=== PATIENT | male | born 1940 | race Caucasian/White ===

== ENCOUNTER 2016-06-10 09:30 | Outpatient (CLI) | payer MEDICARE | END 2016-06-10 09:31 | disposition home or self-care (01) | DX: I48.92 Unspecified atrial flutter (principal) ==

== ENCOUNTER 2016-08-25 04:11 | Observation (INO) | payer MEDICARE ==
[2016-08-25] MEDS ORDERED: SODIUM CHLORIDE 0.9% 1,000 ML IV ONE (04:22)
[2016-08-25] MEDS ORDERED: PANTOPRAZOLE 40 MG VIAL IVP STA (04:36)
[2016-08-25 04:39] LABS: BASOPHILS % (AUTO) 0.2 %; EOSINOPHILS # (AUTO) 0.1 10^3/uL (0.0-0.7); EOSINOPHILS % (AUTO) 1.1 %; HGB - HEMOGLOBIN 14.7 g/dL (14.0-18.0); LYMPHOCYTES # (AUTO) 1.8 10^3/uL (1.5-3.5); LYMPHOCYTES % (AUTO) 16.3 %; MEAN CORPUSCULAR HEMOGLOBIN 31.8 pg (27.0-31.0); MEAN CORPUSCULAR HGB CONC 34.2 g/dL (32.0-36.0); MEAN CORPUSCULAR VOLUME 92.9 fL (80.0-94.0); MEAN PLATELET VOLUME 7.8 fL (7.4-11.4); MONOCYTES # (AUTO) 0.8 10^3/uL (0.0-1.0); MONOCYTES % (AUTO) 7.6 %; NEUTROPHILS # (AUTO) 8.1 10^3/uL (1.5-6.6); NEUTROPHILS % (AUTO) 74.8 %; RED BLOOD COUNT 4.62 10^6/uL (4.70-6.10); RED CELL DISTRIBUTION WIDTH 12.4 % (12.0-15.0); UNCORRECTED WHITE BLOOD COUNT 10.8 x10^3/uL; WHITE BLOOD COUNT 10.8 x10^3/uL (4.8-10.8)
[2016-08-25] MEDS ORDERED: PANTOPRAZOLE 40 MG VIAL ONE (04:42)
[2016-08-25 04:44] LABS: INR 1.1 (0.8-1.2); PT - PROTHROMBIN TIME 12.1 secs (9.9-12.6)
[2016-08-25 04:51] LABS: ALBUMIN/GLOBULIN RATIO 1.6 (1.0-2.2); BILIRUBIN,TOTAL 0.6 mg/dL (0.2-1.0); CALCIUM 8.7 mg/dL (8.5-10.3); PARTIAL THROMBOPLASTIN TIME 27.5 secs (24.9-33.3); POTASSIUM 3.6 mmol/L (3.5-5.0); TOTAL PROTEIN 6.3 g/dL (6.7-8.2)
[2016-08-25] MEDS ORDERED: IOPAMIDOL-300 100 ML VIAL IVP ONE (05:56)
--- NOTE | 2016-08-25 06:24 | CT Preliminary Report ---
Exam: CT Abdomen/Pelvis W/ IMPRESSION: 1. Colitis involving the transverse colon and to a lesser extent the proximal portion of the descendi ng colon. This is probably infectious or inflammatory bowel disease related. 2. No bowel obstruction. 3. Suspect gallstones. [facility] SITE ID: [id number]
--- NOTE | 2016-08-25 06:27 | CT Report ---
EXAM: CT ABDOMEN AND PELVIS EXAM DATE: 08/25/2016 05:42 AM. CLINICAL HISTORY: Abdominal pain and rectal bleeding. Since yesterday morning. COMPARISONS: None. TECHNIQUE: Routine helical CT imaging was performed through the abdomen and pelvis. IV contrast: 100 mL of Isovue-300. Enteric contrast: No. Reconstructions: Coronal and sagittal. In accordance with CT protocol optimization, one or more of the following dose reduction techniques w ere utilized for this exam: automated exposure control, adjustment of mA and/or KV based on patient s ize, or use of iterative reconstructive technique. FINDINGS: ABDOMEN: Liver: No significant abnormality. Stomach/Distal Esophagus: No significant abnormality. Gallbladder: Multiple gallstones. Bile Ducts: No significant abnormality. Pancreas: No significant abnormality. Spleen: No significant abnormality. Kidneys: No solid appearing lesion. No hydronephrosis. Small low-density arising from the posterior a spect of the left mid to upper kidney, too small to accurately characterize. Adrenals: No significant abnormality. Bowel: Moderate wall thickening of the transverse colon is present and to lesser extent within the pr oximal descending colon. Slight apparent sparing of the splenic flexure of the colon. Of the portions of the colon without inflammatory change. No significant diverticulosis. Appendix: Appendix could not be identified with certainty. No secondary evidence of appendicitis. Lymph Nodes: No pathologically enlarged nodes. Vasculature: Normal caliber aorta. Fluid: No significant free fluid. Abdominal Wall: No significant abnormality. Other: No significant abnormality. PELVIS: Prostate Bladder: No significant abnormality. Lymph Nodes: No pathologically enlarged nodes. Fluid: No significant free fluid. Other: None. BONES: No suspicious bony lesions. This is chronic FOCUS within the left iliac bone, most consistent with a bone island. LOWER CHEST: No significant consolidation or effusion. IMPRESSION: 1. Colitis involving the transverse colon and to a lesser extent the proximal portion of the descendi ng colon. This is probably infectious or inflammatory bowel disease related. 2. No bowel obstruction. 3. Suspect gallstones. [facility] Referring Provider Line: [phone] SITE ID: [id number]
--- NOTE | 2016-08-25 06:47 | ED Physician Documentation ---
PD HPI GI BLEED - Stated complaint Stated Complaint: RECTAL BLEED - Chief complaint Chief Complaint: Abd Pain - History obtained from History obtained from: Patient, Family - History of Present Illness Timing - onset: Yesterday Timing - details: Abrupt onset Associated symptoms: BRBPR, Diarrhea Contributing factors: No: Sick contact, Recent antibiotics, NSAID use Similar symptoms before: Has not had sx before Recently seen: Not recently seen - Additional information Additional information: Patient is a 76 year old male with a history of a fib, on a baby aspirin who is presenting to the emergency department for abdominal pain and GI bleeding. patient states that he had moderately severe abdominal pain yesterday. patient had one episode of diarrhea yesterday and it was bright red. patient had another episode this morning and states that he was feeling a bit weaker so he came to the emergency department for evaluation. Review of Systems Constitutional: denies: Fever, Chills Eyes: denies: Loss of vision, Photophobia Ears: denies: Ear pain, Drainage/discharge Nose: denies: Rhinorrhea / runny nose, Congestion Throat: denies: Dental pain / toothache, Oral lesions / sores, Sore throat Cardiac: denies: Chest pain / pressure GI: reports: Abdominal Pain, Nausea, Diarrhea. denies: Vomiting : denies: Dysuria, Frequency, Hematuria Skin: denies: Rash, Lesions, Abrasion (s) Musculoskeletal: denies: Neck pain, Back pain Neurologic: reports: Generalized weakness. denies: Focal weakness, Numbness, Difficulty speaking, Altered mental status, LOC Immunocompromised: denies: Immunocompromised PD PAST MEDICAL HISTORY - Past Medical History Cardiovascular: Atrial fibrillation - Past Surgical History Past Surgical History: Yes General: Hiatal hernia repair - Present Medications Home Medications: Ambulatory Orders Medication Instructions Recorded Confirmed Something For Afib 08/25/16 - Allergies Allergies/Adverse Reactions: Allergies Allergy/AdvReac Type Severity Reaction Status Date / Time No Known Drug Allergies Allergy Verified 08/25/16 04:41 - Social History Does the pt smoke?: No Smoking Status: Never smoker Does the pt drink ETOH?: No Does the pt have substance abuse?: No - Immunizations Immunizations are current?: Yes PD ED PE NORMAL - Vitals Vital signs reviewed: Yes - General General: Alert and oriented X 3, Well developed/nourished - HEENT HEENT: Atraumatic, PERRL, Moist mucous membranes - Neck Neck: Supple, no meningeal sign - Cardiac Cardiac: No murmur - Respiratory Respiratory: No respiratory distress, Clear bilaterally - Derm Derm: Normal color, No rash - Extremities Extremities: No deformity, No tenderness to palpate, No edema - Neuro Neuro: Alert and oriented X 3, No motor deficit, No sensory deficit, Normal speech - Psych Psych: Normal mood, Normal affect PD ED PE EXPANDED - Abdomen Abdomen: Tender to palpation, Generalized/diffuse. No: Rebound, Guarding - Rectal Rectal: Heme Occult Pos - QC +, Other (bright red blood in rectum) Results - Vitals Vitals: Vital Signs - 24 hr 08/25/16 08/25/16 08/25/16 04:15 04:48 05:29 Temperature 36.5 C Heart Rate 94 78 74 Respiratory 16 15 18 Rate Blood Pressure 136/72 H 130/60 139/76 H O2 Saturation 96 97 97 08/25/16 06:47 Temperature Heart Rate 76 Respiratory 16 Rate Blood Pressure 134/71 H O2 Saturation 96 Oxygen O2 Source Room air - Labs Labs: Microbiology 08/25/16 06:00 Occult Blood - Final Stool Laboratory Tests 08/25/16 08/25/16 08/25/16 04:25 04:25 04:25 WBC 10.8 RBC 4.62 L Hgb 14.7 Hct 43.0 MCV 92.9 MCH 31.8 H MCHC 34.2 RDW 12.4 Plt Count 188 MPV 7.8 Neut # 8.1 H Lymph # 1.8 [place] # 0.8 Eos # 0.1 Baso # 0.0 Absolute Nucleated RBC 0.00 Nucleated RBCs 0.0 PT 12.1 INR 1.1 APTT 27.5 Sodium 136 Potassium 3.6 Chloride 103 Carbon Dioxide 24 Anion Gap 9.0 BUN 14 Creatinine 1.0 Estimated GFR (MDRD) 72 L Glucose 207 H Lactic Acid Calcium 8.7 Total Bilirubin 0.6 AST 17 ALT 17 Alkaline Phosphatase 61 Total Protein 6.3 L Albumin 3.9 Globulin 2.4 Albumin/Globulin Ratio 1.6 Lipase 21 L 08/25/16 04:25 WBC RBC Hgb Hct MCV MCH MCHC RDW Plt Count MPV Neut # Lymph # [place] # Eos # Baso # Absolute Nucleated RBC Nucleated RBCs PT INR APTT Sodium Potassium Chloride Carbon Dioxide Anion Gap BUN Creatinine Estimated GFR (MDRD) Glucose Lactic Acid 1.8 Calcium Total Bilirubin AST ALT Alkaline Phosphatase Total Protein Albumin Globulin Albumin/Globulin Ratio Lipase - Rads (name of study) ct abdomen and pelvis Radiology: Final report received, See rad report (consistent with colitis) PD MEDICAL DECISION MAKING - ED course Complexity details: reviewed old records, reviewed results, re-evaluated patient , considered differential, d/w patient, d/w family, d/w acquisition consultant ED course: Patient was seen and examined at bedside. IV access was gained and labs were drawn. Patient was treated with protonix and a fluid bolus. Patient's vital signs were within normal limits. When patient's labs came back patient was sent for imaging. When patient returned the results were reviewed. supervisor melt house surgeon, Dr. Santiago was contacted and he stated that he would come evaluate the patient once he left the OR. Hospitalist was contacted and the case was discussed with him. patient was placed in observation for further evaluation and care. Departure - Departure Disposition: ED Place in Observation Clinical Impression: GI bleed Condition: Stable
[2016-08-25] MEDS ORDERED: SODIUM CHLORIDE FLUSH 0.9% 10 ML SYRINGE IVP PRN (06:56)
[2016-08-25] MEDS ORDERED: ONDANSETRON 4 MG/2 ML VIAL IVP PRN (06:56)
[2016-08-25] MEDS: PANTOPRAZOLE 40 MG VIAL IVP SCH ×2 (08:55→14:51)
[2016-08-25] MEDS: SODIUM CHLORIDE 0.9% 1,000 ML IV SCH ×3 (08:55→23:44)
[2016-08-25] MEDS: CIPROFLOXACIN 400 MG/200 ML 200 ML IV SCH ×2 (08:55→19:59)
[2016-08-25] MEDS: POLYETHYLENE GLYCOL 3350 17 GM PACKET PO SCH (08:59)
[2016-08-25] MEDS: metroNIDAZOLE 500 MG/100 ML 100 ML IV SCH ×3 (10:15→21:57)
[2016-08-25 11:21] LABS: HGB - HEMOGLOBIN 13.5 g/dL (14.0-18.0); MEAN CORPUSCULAR HEMOGLOBIN 31.8 pg (27.0-31.0); MEAN CORPUSCULAR HGB CONC 34.6 g/dL (32.0-36.0); MEAN CORPUSCULAR VOLUME 92.2 fL (80.0-94.0); MEAN PLATELET VOLUME 7.7 fL (7.4-11.4); RED BLOOD COUNT 4.23 10^6/uL (4.70-6.10); RED CELL DISTRIBUTION WIDTH 12.5 % (12.0-15.0); WHITE BLOOD COUNT 9.9 x10^3/uL (4.8-10.8)
[2016-08-25] MEDS: SODIUM CHLORIDE FLUSH 0.9% 10 ML SYRINGE IVP SCH ×2 (13:26→22:54)
--- NOTE | 2016-08-25 15:30 | HISTORY & PHYSICAL EXAMINATION ---
DATE OF ADMISSION: 08/25/2016 PRIMARY CARE PROVIDER: Cher Glover MD. CHIEF COMPLAINT: Rectal bleeding. IDENTIFYING INFORMATION: The patient is the primary source of history and appears cogent, consistent, thorough. His is present and gives some additional information. The patient's additional information obtained from the hand-off from the emergency department anastacia maldonado, Dr. Balderas, as well as personal review of past medical records. The patient's exam is also use d in the evaluation of this person and preparation of this document. HISTORY OF PRESENT ILLNESS: The patient is a 76-year-old male who came in to the hospital with abdomi nal pain that started yesterday morning. It was central, it was severe and it radiated down into his pelvis. The patient said the pain subsided some, and then he had a bowel movement with blood and he w as not sure there was blood, but it did look red. He had this happen again later in the morning, the pain had subsided by this point and really was not bad until the middle of the night he had more blee ding, but still did not have very severe pain and his bowels excreted a thin bloody liquid. The patie nt then came to the hospital for further evaluation. REVIEW OF SYSTEMS: He denies any fever, chills, sweats. He has had no sore throat, cough, congestion. He denies any neck problems, swelling of lymph nodes. The patient had no bleeding, no cough, no shor tness of breath. He has had no chest pain, no palpitations, no feeling like he was going to faint. He has had no nausea, vomiting, diarrhea. He has had no problems with diarrhea, other than as above in the HPI and also had no urinary problems. The rest of the complete review of systems is negative exce pt as noted above. PAST MEDICAL HISTORY: Remarkable for atrial fibrillation. He does use aspirin and he also takes medic ations to control his atrial fibrillation. PAST SURGERY: A hiatal hernia repair. ALLERGIES: NONE KNOWN. MEDICATIONS: 1. Propafenone alternating with Rythmol 225 mg twice a day. 2. Diltiazem 180 once a day. PERSONAL AND SOCIAL HISTORY: The patient was born in [place], [place]. He was raised in that area. 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 The patient smoked until he was 26. He also drank until he was 26 and then jose t both. FAMILY HISTORY: Negative for diabetes. Positive for heart disease. Dad had an TN at age 62, but lived another 22 years subsequently. No cancers known of. PHYSICAL EXAMINATION: VITAL SIGNS: 36.5, 94, 16, 136/72, 96% O2 saturation room air. EYES: EOM within normal limits, PERRL, nonicteric. ENT: TMs not seen. Mouth and throat: Moist mucous membranes. No other pathology noted of mouth or pha rynx. NECK: No lymphadenopathy, no thyromegaly. No JVD, no bruits. CHEST WALL: Nontender. Symmetric. HEART: Irregular rhythm with a 2/6 murmur left sternal border. LUNGS: Clear, good air movement bilaterally. ABDOMEN: Soft, nontender, normal bowel sounds. He says he feels a little bit of pressure. No hepatosp lenomegaly. RECTAL/GENITAL: Exam was not done. EXTREMITIES: No edema and 1+ pulses felt to the posterior tibial. NEURO: Cognition intact. Cranial nerves intact. Motor intact. Gait was not tested. SKIN: No suspicious lesions, no dermatitis on limited exam. LABORATORY: He has white count of 10.8, 14 and 43 hemoglobin and hematocrit. The patient's platelet c ount 188. Sodium 136, potassium 3.6, chloride 103, CO2 of 24, BUN 14. Creatinine 1.0, glucose 207, ca lcium 8.7, bilirubin 0.6. Normal liver enzymes, albumin is 3.9, lipase 21. The patient's INR is 1.1 a nd PTT 27.5. Impression of the CT abdomen and pelvis: 1. Colitis involving the transverse colon and to a lesser extent the proximal portion of the descendi ng colon. This is probably infectious or inflammatory bowel disease related. 2. No bowel obstruction. 3. Suspect gallstones. SUMMARY: This is a 76-year-old male with a history of atrial fibrillation on baby aspirin who develop ed abdominal pain and bloody diarrhea followed by further bloody liquid in the middle the night and c yue into the hospital. Found to have colitis. He is admitted to the hospital for serial CBCs and IV a ntibiotics. It should be noted the patient is [place] and will not accept any blood. DIAGNOSES: 1. Colitis. 2. Bloody diarrhea. 3. Atrial fibrillation. 4. Anemia secondary to acute blood loss. DISCUSSION AND MEDICAL DECISION MAKIN. Colitis. The patient will be treated with antibiotics, namely Cipro and Flagyl and will be on luz l with rest and then a clear liquid diet. 2. Bloody diarrhea. The patient will be monitored with serial hemoglobins. However, the patient is no t a candidate for any blood as he has alevism beliefs which do not allow blood. 3. Atrial fibrillation. The patient's aspirin will be suspended for a short period of time and then r einstituted when he stopped bleeding. 4. Anemia with acute blood loss. Will again be monitored, but no blood products will be given. HOSPITAL ISSUES: 1. CODE STATUS: HE DOES WANT HIS HEART ATTEMPTED TO BE RESTARTED SHOULD IT STOP. HE ALSO DOES WANT TO HAVE INTUBATION AND BE ON A BREATHING MACHINE UNLESS THE OUTCOME IS HOPELESS. 2. VTE prophylaxis is contraindicated at this time. 3. Diet, which will be n.p.o. and then clear liquids, it will be advanced as tolerated and his blood sugars are consistent with having diabetes. He will have an A1c done to confirm. 4. Activity will be up with assistance when able. 5. He will have a peripheral IV at this point, no other tubes or lines. 6. Hospital status: The patient will be on observation with consultation from Dr. Santiago. He is no t a candidate for a colonoscopy at this juncture and will keep him here until we determine that he is not pleading sufficiently to warrant further workup interventions or interventions at this time. 7. Length of stay which is likely to be 1 night. DISPOSITION: Expected to be home. JOB #: [id number] EXT JOB #:[id number]
[2016-08-25] MEDS ORDERED: diltiaZEM CD 180 MG CAPSULE PO SCH (21:00)
[2016-08-25] MEDS: PROPAFENONE 150 MG TABLET PO SCH (21:55)
[2016-08-26] MEDS: metroNIDAZOLE 500 MG/100 ML 100 ML IV SCH ×2 (02:44→09:16)
[2016-08-26] MEDS: PANTOPRAZOLE 40 MG VIAL IVP SCH (05:59)
[2016-08-26] MEDS: SODIUM CHLORIDE FLUSH 0.9% 10 ML SYRINGE IVP SCH (05:59)
[2016-08-26 06:25] LABS: ALBUMIN/GLOBULIN RATIO 1.3 (1.0-2.2); BILIRUBIN,TOTAL 0.5 mg/dL (0.2-1.0); CALCIUM 8.2 mg/dL (8.5-10.3); CREATININE 0.8 mg/dL (0.6-1.2); POTASSIUM 3.7 mmol/L (3.5-5.0); TOTAL PROTEIN 5.9 g/dL (6.7-8.2)
[2016-08-26 07:26] LABS: BASOPHILS % (AUTO) 0.5 %; EOSINOPHILS # (AUTO) 0.1 10^3/uL (0.0-0.7); EOSINOPHILS % (AUTO) 0.8 %; HCT - HEMATOCRIT 38.4 % (42.0-52.0); HGB - HEMOGLOBIN 13.2 g/dL (14.0-18.0); LYMPHOCYTES # (AUTO) 1.4 10^3/uL (1.5-3.5); LYMPHOCYTES % (AUTO) 14.8 %; MEAN CORPUSCULAR HEMOGLOBIN 32.1 pg (27.0-31.0); MEAN CORPUSCULAR HGB CONC 34.4 g/dL (32.0-36.0); MEAN CORPUSCULAR VOLUME 93.2 fL (80.0-94.0); MEAN PLATELET VOLUME 8.1 fL (7.4-11.4); MONOCYTES # (AUTO) 0.8 10^3/uL (0.0-1.0); MONOCYTES % (AUTO) 8.1 %; NEUTROPHILS % (AUTO) 75.8 %; NUCLEATED RED BLOOD CELLS AUTO 0.1 /100WBC; RED BLOOD COUNT 4.12 10^6/uL (4.70-6.10); RED CELL DISTRIBUTION WIDTH 12.9 % (12.0-15.0); UNCORRECTED WHITE BLOOD COUNT 9.3 x10^3/uL; WHITE BLOOD COUNT 9.3 x10^3/uL (4.8-10.8)
[2016-08-26 08:03] VITALS: BP 115/68
[2016-08-26] MEDS: CIPROFLOXACIN 400 MG/200 ML 200 ML IV SCH (08:08)
[2016-08-26] MEDS: PROPAFENONE 150 MG TABLET PO SCH (08:13)
[2016-08-26] MEDS: POLYETHYLENE GLYCOL 3350 17 GM PACKET PO SCH (08:13)
[2016-08-26] MEDS ORDERED: ASPIRIN PO SCH (09:00)
[2016-08-26] MEDS ORDERED: diltiaZEM CD 180 MG CAPSULE PO SCH (09:00)
--- NOTE | 2016-08-26 09:15 | Discharge Plan ---
Discharge Plan Disposition: 01 Home, Self Care Condition: Good Prescriptions: Ciprofloxacin HCl [Cipro] 500 mg PO BID #14 tablet Metronidazole [Flagyl] 500 mg PO QID #28 tablet Diet: Regular Activity Restrictions: Activity as Tolerated Shower Restrictions: No Driving Restrictions: No Weight Bearing: Full Weight Additional Instructions or Follow Up instructions: Do not take aspirin until your provider gives approval. This could cause rebleeding if started in the first 2-4 weeks. Resume a regular diet. Make an appt. to see your PCP Dr. Castillo in the next week No Smoking: If you smoke, Please STOP! Call for help. Follow-up with: Cher Glover MD [Primary Care Provider] - 1 Week
--- NOTE | 2016-08-27 09:19 | DISCHARGE SUMMARY ---
DATE OF ADMISSION: 08/25/2016 DATE OF DISCHARGE: 08/26/2016 PRIMARY CARE PHYSICIAN: Cher Glover MD. ADMISSION DIAGNOSES 1. Colitis. 2. Bloody diarrhea. 3. Atrial fibrillation. 4. Anemia secondary to acute blood loss. DISCHARGE DIAGNOSES 1. Colitis, improved on antibiotics. 2. Bloody diarrhea, resolved. 3. Atrial fibrillation, rate controlled. 4. Anemia, mild, secondary to acute blood loss. SPECIAL PROCEDURES The patient had a CT scan of the abdomen and pelvis, which the findings were: 1. Colitis involving the transverse colon and to a lesser extent the proximal portion of the descendi ng colon. This is probably infectious or inflammatory bowel disease related. 2. No bowel obstruction. 3. Suspect gallstones. CONSULTATIONS: Surgery, Dr. Santiago, see copy of consultation. HOSPITAL COURSE AND MANAGEMENT: The initial presentation, hospital emergency department evaluation, a nd hospitalist plan are well described in the history and physical, see copy of same. SUMMARY: This is a 76-year-old male with history of atrial fibrillation on baby aspirin who developed abdominal pain and bloody diarrhea followed by bloody liquid in the middle of the night and came to the hospital. He was found to have colitis. He was admitted to the hospital for serial CBCs and IV an tibiotics. It should be noted the patient is a Jehovahs Witness and will not accept any blood. The kin castaneda after admission had no further serious abdominal pain, some mild discomfort, and no bowel movem ents at all. His hemoglobin remained without further decline during the rest of his stay. The patient had a consultation with the surgeon noted above. Recommendation was for him to get outpatient follow up colonoscopy in the next 4-6 weeks. PHYSICAL EXAMINATION VITAL SIGNS: On the day of discharge, temperature 36.4, 74, 115/68, 20, 95% room air saturation. EYES: EOM within normal limits, PERRL, nonicteric. MOUTH AND THROAT: Moist mucous membranes. No other pathology of the mouth or pharynx noted. CONSTITUTIONAL: Well-developed, well-nourished, slender male, appears stated age, no acute distress. NECK: No lymphadenopathy, no thyromegaly, no bruits or JVD. CHEST WALL: Nontender. Symmetric. HEART: Irregular rhythm, 2/6 murmur left sternal border. LUNGS: Clear, good air movement bilaterally. ABDOMEN: Soft, nontender. No masses or hepatosplenomegaly appreciated. RECTAL/GENITAL: Exams not done. EXTREMITIES: No edema. NEUROLOGIC: Cognitive intact. Cranial nerves intact. Motor intact. VASCULAR: He has 1+ pulses at posterior tibial bilaterally and normal capillary refill. LABORATORY DATA: He has a white count of 9.3, 13 and 38 hemoglobin and hematocrit. On entry, 14 and 4 3 hemoglobin and hematocrit, platelets were 156. His sodium is 140, potassium 3.7, chloride 103, CO2 23, BUN 10, creatinine 0.8. The patient's glucose is 101, calcium 8.2. Normal liver enzymes. Albumin is 3.3. DISCHARGE ALLERGIES: NONE KNOWN. HOME MEDICATIONS 1. Propafenone 225 b.i.d. 2. Diltiazem CD 180 daily. 3. Flagyl 500 mg q.i.d. for 7 days. 4. Cipro 500 mg b.i.d. for 7 days. The is to follow up with Dr. Glover in the next week. Followup outpatient issues are anticoagulati on, which could be reassessed since he is not on aspirin and is told to stop the aspirin until cleare d by Dr. Glover. Issues would be resuming an aspirin a day or considering a Xa inhibitor. The olvin ent's colonoscopy is also a further outpatient issue. The patient was examined on the day of discharg e. Time spent in dictation less than 30 minutes. JOB #: [id number] EXT JOB #:[id number]
== END 2016-08-26 10:40 | disposition home or self-care (01) ==
LOC: ED 04:11 → MS 06:57
PROVIDERS: ADMIT Internal Medicine; ATTEND Internal Medicine
DX: K52.9 Noninfective gastroenteritis and colitis, unspecified (principal); I48.91 Unspecified atrial fibrillation; D62 Acute posthemorrhagic anemia; Z79.82 Long term (current) use of aspirin; Z87.891 Personal history of nicotine dependence
CPT/HCPCS: 36415; 74177; 80053; 82270; 83605; 83690; 85025; 85027; 85610; 85730; 96361; 96365; 96366; 96367; 96375; 96376; 99284; 99285; A9270; G0378; Q9967; 96374

== ENCOUNTER 2016-10-25 10:52 | Day surgery (SDC) | payer MEDICARE ==
[2016-10-25] MEDS ORDERED: LACTATED RINGERS 1,000 ML IV ONE (10:58)
[2016-10-25] MEDS ORDERED: MIDAZOLAM 2 MG/2 ML VIAL IVP ONE (12:37)
[2016-10-25] MEDS ORDERED: fentaNYL 100 MCG/2 ML VIAL IVP ONE (12:37)
[2016-10-25 13:53] VITALS: BP 120/63
== END 2016-10-25 10:53 | disposition home or self-care (01) ==
LOC: SDS 10:52
PROVIDERS: ATTEND Surgery
PROC: 0DBL8ZX Excision of Transverse Colon, Via Natural or Artificial Opening Endoscopic, Diagnostic (ICD-10-PCS; principal; 2016-10-25 11:15)
DX: K62.5 Hemorrhage of anus and rectum (principal); R19.7 Diarrhea, unspecified; D12.3 Benign neoplasm of transverse colon; K57.30 Diverticulosis of large intestine without perforation or abscess without bleeding; K64.8 Other hemorrhoids; I48.91 Unspecified atrial fibrillation; Z82.49 Family history of ischemic heart disease and other diseases of the circulatory system; Z87.891 Personal history of nicotine dependence
CPT/HCPCS: 45380; 45385; J7120

== ENCOUNTER 2018-04-06 10:51 | Outpatient (CLI) | payer MEDICARE ==
--- NOTE | 2018-04-06 17:06 | XRAY Report ---
Reason: R HIP PAIN Procedure Date: 04/06/2018 Accession Number: [id number] / [id number] Procedure: XR - Hip w/Pelvis 2-3V RT CPT Code: FULL RESULT: EXAM: RIGHT HIP RADIOGRAPHY EXAM DATE: 04/06/2018 11:16 AM. CLINICAL HISTORY: R HIP PAIN. No known injury. COMPARISON: ABDOMEN/PELVIS W/ 08/25/2016 5:41 AM. TECHNIQUE: 2 views. FINDINGS: Bones: Normal. No fractures or bone lesion. Joints: Mild right hip joint space narrowing. No dislocation. Soft Tissues: Moderate rectal stool. IMPRESSION: Mild right hip degenerative change. [facility]
== END 2018-04-06 10:52 | disposition home or self-care (01) ==
LOC: DI 10:51
PROVIDERS: ATTEND Internal Medicine
DX: M16.11 Unilateral primary osteoarthritis, right hip (principal)

== ENCOUNTER 2018-06-15 18:23 | Emergency (ER) | payer MEDICARE ==
--- NOTE | 2018-06-15 19:19 | XRAY Report ---
Reason: swelling/pain after injury Procedure Date: 06/15/2018 Accession Number: [id number] / [id number] Procedure: XR - Ankle 3 View LT CPT Code: FULL RESULT: EXAM: LEFT ANKLE RADIOGRAPHY EXAM DATE: 06/15/2018 07:04 PM. CLINICAL HISTORY: Swelling/pain after injury. COMPARISON: None. TECHNIQUE: 3 views. FINDINGS: Bones: Normal. No fractures or bone lesions. Joints: Normal. No effusion. No subluxations. The ankle mortise is normally aligned. Soft Tissues: Moderate left ankle swelling. IMPRESSION: 1. No fracture or malalignment. 2. Ankle mortise intact. 3. Moderate left ankle swelling. 4. If patient remains symptomatic, recommend radiographs in 10-14 days. [facility]
--- NOTE | 2018-06-15 19:35 | ED Physician Documentation ---
PD HPI LOWER EXT INJURY - Stated complaint Stated Complaint: L ANKLE PX - Chief complaint Chief Complaint: Ext Problem - History obtained from History obtained from: Patient - History of Present Illness PD HPI LOW EXT INJURY LOCATION: Left, Lower leg, Ankle Type of injury: Blunt / blow (he stepped back and a loose board flipped up and struck him in anterior lower leg. Pain and swelling intensely, which is lessening enroute.) Where injury occurred: Home Timing - onset: Today Timing - details: Abrupt onset, Still present Worsened by: Palpating Associated symptoms: Swelling. No: Weakness, Numbness Review of Systems Skin: denies: Abrasion (s), Laceration (s) Neurologic: denies: Generalized weakness, Focal weakness, Numbness PD PAST MEDICAL HISTORY - Past Medical History Past Medical History: Yes Cardiovascular: Atrial fibrillation Respiratory: None Endocrine/Autoimmune: None : None HEENT: None Psych: None Musculoskeletal: None Derm: None - Past Surgical History Past Surgical History: Yes General: Hiatal hernia repair - Present Medications Home Medications: Ambulatory Orders Medication Instructions Recorded Confirmed Propafenone HCl 225 mg PO BID 08/25/16 10/22/16 diltiaZEM CD [Cardizem Cd] 180 mg PO DAILY 08/25/16 10/22/16 - Allergies Allergies/Adverse Reactions: Allergies Allergy/AdvReac Type Severity Reaction Status Date / Time No Known Drug Allergies Allergy Verified 06/15/18 18:40 - Social History Does the pt smoke?: No Smoking Status: Never smoker Does the pt drink ETOH?: Yes Does the pt have substance abuse?: No - Immunizations Immunizations are current?: Yes PD ED PE NORMAL - Vitals Vital signs reviewed: Yes - General General: Alert and oriented X 3, No acute distress, Well developed/nourished - Derm Derm: Normal color, Warm and dry - Extremities Extremities: Other (anterior lower tib/ankle with focal tenderness, swelling, early bruising c/w contusion and hematoma. No ankle effusion. ) - Neuro Neuro: No motor deficit, No sensory deficit Results - Vitals Vitals: Oxygen O2 Source Room air - Rads (name of study) ankle xray Radiology: Prelim report reviewed (no fractures), EMP read contemporaneously, See rad report PD MEDICAL DECISION MAKING - ED course Complexity details: reviewed results, considered differential, d/w patient Departure - Departure Disposition: 01 Home, Self Care Clinical Impression: Contusion, lower leg Qualifiers: Encounter type: initial encounter Laterality: left Qualified Code(s): S80.12XA - Contusion of left lower leg, initial encounter Condition: Stable Record reviewed to determine appropriate education?: Yes Instructions: ED Contusion Lower Ext Follow-Up: Cher Glover MD [Primary Care Provider] - Comments: Tylenol ibuprofen or Aleve as needed for pains. Elevate ice and rest your lower leg a lot at night to help continue the swelling to reduce. No fracture seen on x-ray. This will be sore for several days to week likely. He will likely get bruising around the injury site and also around the ankle and foot. Progress weightbearing and use as tolerated. Discharge Date/Time: 06/15/18 20:07
[2018-06-15 20:06] VITALS: BP 127/80
== END 2018-06-15 20:07 | disposition home or self-care (01) ==
LOC: ED 18:23
DX: S80.12XA Contusion of left lower leg, initial encounter (principal); W22.8XXA Striking against or struck by other objects, initial encounter; Y92.007 Garden or yard of unspecified non-institutional (private) residence as the place of occurrence of the external cause
CPT/HCPCS: 99283

== ENCOUNTER 2021-07-23 08:00 | Outpatient (CLI) | payer MEDICARE ==
[2021-07-23 18:18] LABS: BASOPHILS % (AUTO) 0.8 %; EOSINOPHILS # (AUTO) 0.2 10^3/uL (0.0-0.7); EOSINOPHILS % (AUTO) 4.4 %; HCT - HEMATOCRIT 45.4 % (42.0-52.0); HGB - HEMOGLOBIN 14.8 g/dL (14.0-18.0); LYMPHOCYTES # (AUTO) 1.3 10^3/uL (1.5-3.5); LYMPHOCYTES % (AUTO) 27.8 %; MEAN CORPUSCULAR HGB CONC 32.6 g/dL (32.0-36.0); MEAN CORPUSCULAR VOLUME 98.1 fL (80.0-94.0); MEAN PLATELET VOLUME 10.9 fL (7.4-11.4); MONOCYTES # (AUTO) 0.5 10^3/uL (0.0-1.0); MONOCYTES % (AUTO) 9.5 %; NEUTROPHILS # (AUTO) 2.7 10^3/uL (1.5-6.6); NEUTROPHILS % (AUTO) 57.3 %; PLT - PLATELET COUNT 174 10^3/uL (130-450); RED BLOOD COUNT 4.63 10^6/uL (4.70-6.10); RED CELL DISTRIBUTION WIDTH 12.6 % (12.0-15.0); WHITE BLOOD COUNT 4.8 x10^3/uL (4.8-10.8)
[2021-07-23 18:49] LABS: ALBUMIN/GLOBULIN RATIO 1.3 (1.0-2.2); ALKALINE PHOSPHATASE 69 IU/L (42-121); ALT ALANINE AMINOTRANSFERASE 23 IU/L (10-60); AST ASPARTATE AMINOTRANSFERASE 23 IU/L (10-42); BILIRUBIN,TOTAL 0.8 mg/dL (0.2-1.0); BUN - BLOOD UREA NITROGEN 11 mg/dL (6-20); CARBON DIOXIDE - CO2 27 mmol/L (21-32); CHLORIDE 103 mmol/L (101-111); CHOL/HDL RATIO 2.9 (<5.0); CHOLESTEROL 226 mg/dL; CREATININE 0.8 mg/dL (0.6-1.2); GFR - MDRD 92 (>89); GLUCOSE 95 mg/dL (70-100); HDL CHOLESTEROL 79 mg/dL; LDL CHOLESTEROL,CALCULATED 137 mg/dL; LDL/HDL RATIO 1.7 (<3.6); POTASSIUM 4.3 mmol/L (3.5-5.0); SODIUM 139 mmol/L (135-145); TOTAL PROTEIN 7.2 g/dL (6.7-8.2); TRIGLYCERIDES 51 mg/dL; VLDL CHOLESTEROL 10 mg/dL
[2021-07-23 21:03] LABS: ESTIMATED AVERAGE GLUCOSE 114 mg/dL (70-100); HEMOGLOBIN A1c% 5.6 % (4.27-6.07)
== END 2021-07-23 23:59 | disposition home or self-care (01) ==
LOC: LAB.R 08:00
PROVIDERS: ATTEND Internal Medicine
DX: Z00.00 Encounter for general adult medical examination without abnormal findings (principal); I48.91 Unspecified atrial fibrillation; Z86.010 Personal history of colon polyps; R73.01 Impaired fasting glucose; Z79.899 Other long term (current) drug therapy; B02.9 Zoster without complications
CPT/HCPCS: 80053; 80061; 83036; 83721; 84443; 85025

== ENCOUNTER 2022-01-20 07:08 | Day surgery (SDC) | payer MEDICARE ==
[~2022-01-20 07:08] MED LIST: PROPOFOL 500 MG/50 ML 500 MG/50 ML VIAL ONE
[2022-01-20] MEDS ORDERED: LACTATED RINGERS 1,000 ML IV ONE ×2 (07:24→10:51)
--- NOTE | 2022-01-20 09:46 | ANESTHESIA ---
Pre-Anesthesia VS, & Labs - Diagnosis screening colonoscopy - Procedure colonoscopy Vital Signs: Temp Pulse Resp BP Pulse Ox O2 Flow Rate 36.0 C L 93 14 159/83 H 99 0 01/20/22 07:24 01/20/22 07:24 01/20/22 07:24 01/20/22 07:24 01/20/22 07:24 01/20/22 07:24 Height: 6 ft 1 in Weight (kg): 75.7 kg Body Mass Index: 22.0 BMI Classification: Normal - NPO >8 hours Home Medications and Allergies Allergies/Adverse Reactions: Allergies Allergy/AdvReac Type Severity Reaction Status Date / Time No Known Drug Allergies Allergy Verified 01/20/22 07:29 Anes History & Medical History - Anesthetic History Anesthesia Complications: reports: No previous complications - Medical History Cardiovascular: reports: Atrial fibrillation (history, now in NSR) Pulmonary: reports: None Gastrointestinal: reports: GI bleed, Colon polyps Urinary: reports: None Neuro: reports: None Musculoskeletal: reports: None Endocrine/Autoimmune: reports: None Blood Disorders: reports: None Skin: reports: None Smoking Status: Never smoker Psychosocial: reports: No issues indicated History of Cancer?: No - Surgical History General: reports: Hiatal hernia repair, Colonoscopy Orthopedic: reports: Other Exam General: Alert, Oriented x3, Cooperative, No acute distress Mouth Openin Fingerbreadth Neck Mobility: Normal Mallampati classification: I Thyromental Distance: 4-6 cm Mental/Cognitive Status: Alert/Oriented X3, Normal for patient Plan Anesthesia Type: General, Total IV Consent for Procedure(s) Verified and Reviewed: Yes Code Status: Attempt Resuscitation ASA classification: 2-Mild systemic disease Is this case an emergency?: No
--- NOTE | 2022-01-20 09:46 | ANESTHESIA ---
Pre-Anesthesia VS, & Labs - Diagnosis screening - Procedure colonscopy Vital Signs: Temp Pulse Resp BP Pulse Ox O2 Flow Rate 36.0 C L 93 14 159/83 H 99 0 01/20/22 07:24 01/20/22 07:24 01/20/22 07:24 01/20/22 07:24 01/20/22 07:24 01/20/22 07:24 Height: 6 ft 1 in Weight (kg): 75.7 kg Body Mass Index: 22.0 BMI Classification: Normal - NPO >8 hours Home Medications and Allergies Allergies/Adverse Reactions: Allergies Allergy/AdvReac Type Severity Reaction Status Date / Time No Known Drug Allergies Allergy Verified 01/20/22 07:29 Anes History & Medical History - Anesthetic History Anesthesia Complications: reports: No previous complications Family history of Anesthesia Complications: Denies Family history of Malignant Hyperthermia: Denies - Medical History Cardiovascular: reports: Atrial fibrillation Pulmonary: reports: None Gastrointestinal: reports: GI bleed, Colon polyps Urinary: reports: None Musculoskeletal: reports: None Endocrine/Autoimmune: reports: None Blood Disorders: reports: None Skin: reports: None Smoking Status: Never smoker - Surgical History General: reports: Hiatal hernia repair, Colonoscopy Orthopedic: reports: Other Exam General: Alert, Oriented x3, Cooperative Dental: WNL Mouth Openin Fingerbreadth Neck Mobility: Normal Mallampati classification: II Plan Anesthesia Type: Total IV Consent for Procedure(s) Verified and Reviewed: Yes Code Status: Attempt Resuscitation
[2022-01-20 11:03] VITALS: BP 117/72
--- NOTE | 2022-01-20 16:13 | ANESTHESIA POST OP EVALUATION ---
Anesthesia Post Eval - Post Anesthesia Eval Vitals: Last Vital Signs Temp 36.0 C L 01/20/22 11:02 Pulse 74 01/20/22 11:02 Resp 16 01/20/22 11:02 BP 117/72 01/20/22 11:02 Pulse Ox 97 01/20/22 11:02 O2 Flow Rate 0 01/20/22 07:24 CV Function Including HR & BP: Stable Pain Control: Satisfactory Nausea & Vomiting: Negative Mental Status: Baseline Respiratory Status: Airway Patent Hydration Status: Satisfactory Anesthesia Complications: None
== END 2022-01-20 07:09 | disposition home or self-care (01) ==
LOC: SDS 07:08
PROVIDERS: ATTEND Surgery
DX: Z12.11 Encounter for screening for malignant neoplasm of colon (principal); K64.8 Other hemorrhoids; Z86.010 Personal history of colon polyps; Z87.891 Personal history of nicotine dependence
CPT/HCPCS: G0105; J7120

== ENCOUNTER 2022-07-22 09:25 | Emergency (ER) | payer MEDICARE ==
[2022-07-22 09:49] LABS: BASOPHILS # (AUTO) 0.1 10^3/uL (0.0-0.1); BASOPHILS % (AUTO) 0.9 %; EOSINOPHILS # (AUTO) 0.2 10^3/uL (0.0-0.7); EOSINOPHILS % (AUTO) 3.6 %; HCT - HEMATOCRIT 42.4 % (42.0-52.0); HGB - HEMOGLOBIN 14.3 g/dL (14.0-18.0); LYMPHOCYTES # (AUTO) 1.6 10^3/uL (1.5-3.5); LYMPHOCYTES % (AUTO) 27.4 %; MEAN CORPUSCULAR HEMOGLOBIN 31.7 pg (27.0-31.0); MEAN CORPUSCULAR HGB CONC 33.7 g/dL (32.0-36.0); MEAN PLATELET VOLUME 9.6 fL (7.4-11.4); MONOCYTES # (AUTO) 0.5 10^3/uL (0.0-1.0); MONOCYTES % (AUTO) 8.9 %; NEUTROPHILS # (AUTO) 3.5 10^3/uL (1.5-6.6); NEUTROPHILS % (AUTO) 58.9 %; PLT - PLATELET COUNT 214 10^3/uL (130-450); RED BLOOD COUNT 4.51 10^6/uL (4.70-6.10); WHITE BLOOD COUNT 5.9 x10^3/uL (4.8-10.8)
[2022-07-22 10:03] LABS: ALBUMIN 3.9 g/dL (3.2-5.5); ALBUMIN/GLOBULIN RATIO 1.3 (1.0-2.2); BILIRUBIN,TOTAL 0.7 mg/dL (0.2-1.0); CREATININE 0.9 mg/dL (0.6-1.2); POTASSIUM 4.1 mmol/L (3.5-5.0); TOTAL PROTEIN 6.9 g/dL (6.7-8.2)
[2022-07-22 10:39] LABS: B. PARAPERTUSSIS- RESP PCR PAN NOT DETECTED; B. PERTUSSIS- RESP PCR PANEL NOT DETECTED; C. PNEUMONIAE- RESP PCR PANEL NOT DETECTED; CORONAVIRUS 229E-RESP PCR NOT DETECTED; CORONAVIRUS HKU1-RESP PCR NOT DETECTED; CORONAVIRUS NL63-RESP PCR NOT DETECTED; CORONAVIRUS OC43-RESP PCR NOT DETECTED; HUMAN METAPNEUMOVIRUS NOT DETECTED; INFLUENZA A- RESP PCR PANEL NOT DETECTED; INFLUENZA B - RESP PCR PANEL NOT DETECTED; M. PNEUMONIAE- RESP PCR PANEL NOT DETECTED; PARAINFLUENZA VIRUS 1 NOT DETECTED; PARAINFLUENZA VIRUS 2 NOT DETECTED; PARAINFLUENZA VIRUS 3 NOT DETECTED; PARAINFLUENZA VIRUS 4 NOT DETECTED; RHINOVIRUS/ENTEROVIRUS NOT DETECTED; RSV- RESP PCR PANEL NOT DETECTED; SARS-CoV-2 -RESP PCR PANEL NOT DETECTED
[2022-07-22 10:41] LABS: BILIRUBIN,URINE NEGATIVE (NEGATIVE); GLUCOSE, URINE (UA) NEGATIVE (NEGATIVE); KETONES,URINE (UA) NEGATIVE (NEGATIVE); LEUKOCYTE ESTERASE, URINE NEGATIVE (NEGATIVE); NITRITE,URINE NEGATIVE (NEGATIVE); OCCULT BLOOD,URINE NEGATIVE (NEGATIVE); PROTEIN,URINE NEGATIVE (NEGATIVE); UROBILINOGEN,URINE 0.2 (NORMAL) E.U./dL (NORMAL)
[2022-07-22 10:43] LABS: CLARITY,URINE HAZY (CLEAR)
[2022-07-22 10:51] LABS: RBC,URINE 0-5 /HPF (0-5); WBC,URINE 0-3 /HPF (0-3)
[2022-07-22 10:52] LABS: AMORPHOUS SEDIMENT,UR Few /LPF; BACTERIA,URINE Few /HPF (None Seen); SQUAMOUS EPITHELIAL CELL,UR NONE SEEN (<= Few)
[2022-07-22] MEDS ORDERED: SODIUM CHLORIDE 0.9% 1,000 ML IV STA (12:05)
[2022-07-22 13:04] VITALS: BP 136/72
--- NOTE | 2022-07-22 13:14 | ED Physician Documentation ---
History of Present Illness - Stated complaint Stated Complaint: WEAKNESS - Chief complaint Chief Complaint: General - History obtained from History obtained from: Patient, Family - Additonal information Additional information: The patient is brought to the emergency department by his daughter for chief complaint of weakness for the last 4 to 5 months. They decided to come to the ED today because his weakness seem worse this morning. They do have an appointment coming up in 5 days with her primary doctor but the patient did not feel he could wait. He states that he just feels like he has no energy. It is worse in the morning but seems to improve throughout the day. He is not known to have sleep apnea but does note that he gets up a couple of times a night to go to the bathroom. He does feel that he sleeps well in between, but when he wakes up in the morning, he feels as though he did not sleep at all. He states that he just feels like he has to force himself to get out of bed. The patient denies any chest pain or shortness of breath normally, but that this morning, he just felt very tired after ambulating in the house. He had to sit down and rest. He has not noticed any nausea or vomiting. No lower extremity edema. He states he had an echocardiogram and a stress test about 6 years ago and was told his heart was in very good condition. No weight loss. His daughter states that prior to the onset of this generalized weakness, the patient actually had a lot of energy and has generally been very healthy despite his advanced age. PD PAST MEDICAL HISTORY - Past Medical History Past Medical History: Yes Cardiovascular: Atrial fibrillation Respiratory: None Neuro: None Endocrine/Autoimmune: None GI: GI bleed, Colon polyps : None HEENT: None Psych: None Musculoskeletal: None Derm: None - Past Surgical History Past Surgical History: Yes General: Hiatal hernia repair, Colonoscopy Ortho: Other - Allergies Allergies/Adverse Reactions: Allergies Allergy/AdvReac Type Severity Reaction Status Date / Time No Known Drug Allergies Allergy Verified 07/22/22 09:34 - Social History Does the pt smoke?: No Smoking Status: Never smoker Does the pt drink ETOH?: Yes Does the pt have substance abuse?: No - Immunizations Immunizations are current?: Yes PD ED PE NORMAL - Vitals Vital signs reviewed: Yes - General General: Alert and oriented X 3, No acute distress, Well developed/nourished - HEENT HEENT: Atraumatic, PERRL, EOMI, Moist mucous membranes - Neck Neck: Supple, no meningeal sign - Cardiac Cardiac: RRR, No murmur, Strong equal pulses - Respiratory Respiratory: No respiratory distress, Clear bilaterally - Abdomen Abdomen: Soft, Non tender, Non distended - Derm Derm: Warm and dry - Extremities Extremities: No deformity - Neuro Neuro: Alert and oriented X 3 - Psych Psych: Normal mood, Normal affect Results - Vitals Vitals: Vital Signs - 24 hr 07/22/22 07/22/22 07/22/22 09:32 11:34 13:00 Temperature 36.0 C L Heart Rate 69 60 64 Respiratory 20 15 15 Rate Blood Pressure 142/78 H 129/66 136/72 H O2 Saturation 94 94 95 Oxygen O2 Source Room air - EKG (time done) 0950 EKG releavant findings:: EKG personally interpreted by author of this note. Relevant findings are: Rate: Rate (enter#) (62) Rhythm: NSR [place]: Normal Intervals: Normal HI QRS: Normal Ischemia: Normal ST segments Compare to prior EKG: Old EKG unavailable Computer interpretation: Agree with computer - Labs Labs: Laboratory Tests 07/22/22 07/22/22 07/22/22 09:40 09:40 09:40 WBC 5.9 RBC 4.51 L Hgb 14.3 Hct 42.4 MCV 94.0 MCH 31.7 H MCHC 33.7 RDW 12.0 Plt Count 214 MPV 9.6 Neut # (Auto) 3.5 Lymph # (Auto) 1.6 [place] # (Auto) 0.5 Eos # (Auto) 0.2 Baso # (Auto) 0.1 Absolute Nucleated RBC 0.00 Nucleated RBC % 0.0 Sodium 138 Potassium 4.1 Chloride 105 Carbon Dioxide 26 Anion Gap 7.0 BUN 15 Creatinine 0.9 Estimated GFR (MDRD) 80 L Glucose 117 H Calcium 9.0 Total Bilirubin 0.7 AST 15 ALT 13 Alkaline Phosphatase 47 B-Natriuretic Peptide 43 Total Protein 6.9 Albumin 3.9 Globulin 3.0 Albumin/Globulin Ratio 1.3 Lipase 38 TSH Urine Color Urine Clarity Urine pH Ur Specific [place] Urine Protein Urine Glucose (UA) Urine Ketones Urine Occult Blood Urine Nitrite Urine Bilirubin Urine Urobilinogen Ur Leukocyte Esterase Urine RBC Urine WBC Ur Squamous Epith Cells Amorphous Sediment Urine Bacteria Ur Microscopic Review Urine Culture Comments Nasal Adenovirus (PCR) Nasal B. parapertussis DNA (PCR) Nasal Coronavir 229E PCR Nasal Coronavir HKU1 PCR Nasal Coronavir NL63 PCR Nasal Coronavir OC43 PCR Nasal Enterovir/Rhinovir PCR Nasal Influenza B PCR Nasal Influenza A PCR Nasal Parainfluen 1 PCR Nasal Parainfluen 2 PCR Nasal Parainfluen 3 PCR Nasal Parainfluen 4 PCR Nasal RSV (PCR) Nasal B.pertussis DNA PCR Nasal C.pneumoniae (PCR) Jose Human Metapneumo PCR Nasal M.pneumoniae (PCR) Nasal SARS-CoV-2 (PCR) 07/22/22 07/22/22 07/22/22 09:40 09:45 10:36 WBC RBC Hgb Hct MCV MCH MCHC RDW Plt Count MPV Neut # (Auto) Lymph # (Auto) [place] # (Auto) Eos # (Auto) Baso # (Auto) Absolute Nucleated RBC Nucleated RBC % Sodium Potassium Chloride Carbon Dioxide Anion Gap BUN Creatinine Estimated GFR (MDRD) Glucose Calcium Total Bilirubin AST ALT Alkaline Phosphatase B-Natriuretic Peptide Total Protein Albumin Globulin Albumin/Globulin Ratio Lipase TSH 3.12 Urine Color YELLOW Urine Clarity HAZY Urine pH 7.0 Ur Specific [place] 1.015 Urine Protein NEGATIVE Urine Glucose (UA) NEGATIVE Urine Ketones NEGATIVE Urine Occult Blood NEGATIVE Urine Nitrite NEGATIVE Urine Bilirubin NEGATIVE Urine Urobilinogen 0.2 (NORMAL) Ur Leukocyte Esterase NEGATIVE Urine RBC 0-5 Urine WBC 0-3 Ur Squamous Epith Cells NONE SEEN Amorphous Sediment Few Urine Bacteria Few Ur Microscopic Review INDICATED Urine Culture Comments NOT INDICATED Nasal Adenovirus (PCR) NOT DETECTED Nasal B. parapertussis DNA (PCR) NOT DETECTED Nasal Coronavir 229E PCR NOT DETECTED Nasal Coronavir HKU1 PCR NOT DETECTED Nasal Coronavir NL63 PCR NOT DETECTED Nasal Coronavir OC43 PCR NOT DETECTED Nasal Enterovir/Rhinovir PCR NOT DETECTED Nasal Influenza B PCR NOT DETECTED Nasal Influenza A PCR NOT DETECTED Nasal Parainfluen 1 PCR NOT DETECTED Nasal Parainfluen 2 PCR NOT DETECTED Nasal Parainfluen 3 PCR NOT DETECTED Nasal Parainfluen 4 PCR NOT DETECTED Nasal RSV (PCR) NOT DETECTED Nasal B.pertussis DNA PCR NOT DETECTED Nasal C.pneumoniae (PCR) NOT DETECTED Jose Human Metapneumo PCR NOT DETECTED Nasal M.pneumoniae (PCR) NOT DETECTED Nasal SARS-CoV-2 (PCR) NOT DETECTED - Rads (name of study) Chest x-ray Relevant Findings:: Final report received, See rad report (neg) PD Medical Decision Making - ED course Complexity details: reviewed results, re-evaluated patient, considered differential, d/w patient, d/w family ED course: The patient was worked up with laboratory studies which were ordered and reviewed by me, including CBC, ER abdominal panel, TSH, and BNP. Labs were unremarkable. The patient's EKG, other than showing a borderline interventricular conduction delay, was normal. The patient was hydrated with a liter of normal saline, after which she did report feeling better. [place] the patient was stable for discharge home. I do not know why he has felt weak for the last 4 to 5 months, nor do I know why he felt weaker today. He is ambulated to the bathroom several times briskly on a narrow-based gait, without assistance. I have discussed with the patient and his daughter that follow-up considerations would be vitamin levels, stress test, and cancer marker testing. We have discussed staying on top of hydration at home. We have also discussed the usual indications for return. Departure - Departure Disposition: 01 Home, Self Care Clinical Impression: Generalized weakness Condition: Stable Instructions: ED Weakness [facility] Comments: Extensive work-up has been done today without specific findings to explain your ongoing weakness for these past several months. It is not clear why it was worse this morning. Your labs for your thyroid and for congestive heart failure are normal. Your blood counts are normal as well. Your chest x-ray does not show any enlargement of your heart. Your electrolytes all look good, as well, and your kidney function is normal. The viral panel that was sent to see if you have any underlying infection looks good and your urinalysis is negative. It is not clear exactly why you are feeling weak and it is important to follow-up with your doctor regarding this. They can repeat a stress test potentially check vitamin levels to be sure that there is not a more subtle underlying cause of the weakness. Please keep your appointment as scheduled for this on Tuesday. Discharge Date/Time: 07/22/22 13:22
--- NOTE | 2022-07-22 13:25 | XRAY Report ---
PROCEDURE: Chest 1 View X-Ray INDICATIONS: weakness/palpitations TECHNIQUE: One view of the chest was acquired. COMPARISON: None. FINDINGS: Surgical changes and devices: None. Lungs and pleura: No pleural effusions or pneumothorax. Lungs are clear. Mediastinum: Mediastinal contours appear normal. Heart size is normal. Bones and chest wall: No suspicious bony lesions. Overlying soft tissues appear unremarkable. IMPRESSION: No acute cardiopulmonary abnormality. Reviewed by: Lan Quevedo MD on 07/22/2022 1:24 PM PDT Approved by: Lan Quevedo MD on 07/22/2022 1:24 PM PDT Station ID: [id number]
== END 2022-07-22 13:22 | disposition home or self-care (01) ==
LOC: ED 09:25
DX: R53.1 Weakness (principal); Z20.822 Contact with and (suspected) exposure to COVID-19
CPT/HCPCS: 36415; 80053; 81001; 81003; 83690; 83880; 84443; 85025; 87086; 87633; 93005; 99283; 99284

== ENCOUNTER 2022-08-21 12:38 | Outpatient (CLI) | payer MEDICARE ==
[2022-08-21] MEDS ORDERED: DIATR MEGLU/DIATRIZOATE SODIUM 120 ML BOTTLE ONE (13:16)
[2022-08-21] MEDS: DIATRIZOATE MEGLU/DIATRIZO SOD 30 ML BOTTLE PO ONE (14:59)
--- NOTE | 2022-08-21 16:35 | CT Report ---
PROCEDURE: ABDOMEN/PELVIS W INDICATIONS: FATIGUE CONTRAST: 100ml omni 300 TECHNIQUE: After the administration of IV and oral contrast, 5 mm thick sections acquired from the diaphragms to the symphysis. 5 mm thick coronal and sagittal reformats were acquired. For radiation dose reducti on, the following was used: automated exposure control, adjustment of mA and/or kV according to olvin ent size. COMPARISON: 08/25/2016 FINDINGS: Image quality: Excellent. Lung bases and heart: Bibasilar dependent atelectasis is seen. Heart size is normal, no pericardial e ffusion.. Liver: No solid mass. Gallbladder and biliary tree: Gallbladder is within normal limits. No biliary ductal dilatation. Spleen: No splenomegaly. Pancreas: No pancreatic ductal dilation. Adrenals: No adrenal nodule. Kidneys and ureters: No hydronephrosis. No renal cystic lesion which requires follow up. No solid mas s. Small exophytic midpole left renal cyst is seen measures 1 cm in size. Bowel and peritoneum: There is no bowel obstruction. No gastric or small bowel wall thickening. Moder ate fecal stasis throughout the colon is noted. No abnormal colonic wall thickening. No abscess colle ction. No free fluid of free air. Lymph nodes: No central or retroperitoneal adenopathy. Vessels: No infrarenal aortic aneurysm. PELVIS Reproductive organs: Enlarged prostate gland with mass effect on floor of urinary bladder is.. Bladder: No abnormal wall thickening, accounting for underdistension. 3.2 x 2.4 cm left posterior lat eral bladder diverticulum is seen. Pelvic lymph nodes: No pelvic adenopathy by size criteria. Bones: No aggressive osseous abnormality. Other: No significant ventral or inguinal hernia. IMPRESSION: 1. No acute inflammatory process is seen in abdomen or pelvis. No free fluid of free air. Moderate co nstipation. 2. No abdominal or pelvic lymphadenopathy by size criteria. 3. Left posterior lateral bladder wall diverticulum as above. No renal stones or hydronephrosis. Reviewed by: Mp Oreilly MD on 08/21/2022 4:34 PM PDT Approved by: Mp Oreilly MD on 08/21/2022 4:34 PM PDT Station ID: [id number]
--- NOTE | 2022-08-21 16:39 | CT Report ---
PROCEDURE: CHEST W INDICATIONS: FATIGUE TECHNIQUE: After the administration of intravenous contrast, 1 mm axial images were acquired from the pulmonary apices through the posterior costophrenic angles. Axial 5 mm soft tissue kernel reconstructions were performed as well as 8 mm axial MIP and coronal and sagittal 5 mm reformations. For radiation dose reduction, the following was used: automated exposure control, adjustment of mA and/or kV according to patient size. COMPARISON: Chest radiograph dated 07/22/2022. FINDINGS: Image quality: Excellent. Lungs and pleura: No consolidation. No pleural effusions. No pneumothorax. No suspicious pulmonary n odules which require follow up. Mild dependent atelectasis in posterior aspect of bilateral lung fiel ds are seen. Mediastinum: Heart size is normal. No pericardial effusions. No mediastinal adenopathy by size criter ia. No large vessel abnormality. Chest wall and lower neck: Thyroid is unremarkable. No axillary or supraclavicular adenopathy by size . Bones: No aggressive osseous abnormality. Upper Abdomen: Unremarkable. IMPRESSION: 1. No focal infiltrate, pleural effusion or pneumothorax. No suspicious pulmonary nodule is seen. Mil d bibasilar dependent atelectasis. 2. No mediastinal or hilar lymphadenopathy. No thoracic aortic aneurysm or dissection. No gross centr al pulmonary emboli. Reviewed by: Mp Oreilly MD on 08/21/2022 4:37 PM PDT Approved by: Mp Oreilly MD on 08/21/2022 4:37 PM PDT Station ID: [id number]
== END 2022-08-21 12:39 | disposition home or self-care (01) ==
LOC: DI 12:38
PROVIDERS: ATTEND Internal Medicine
DX: J98.11 Atelectasis (principal); K59.00 Constipation, unspecified; N32.3 Diverticulum of bladder; R53.83 Other fatigue
CPT/HCPCS: 71260; 74177; Q9963; Q9967

== ENCOUNTER 2023-09-01 11:47 | Emergency (ER) | payer MEDICARE ==
[2023-09-01 13:40] LABS: BASOPHILS % (AUTO) 0.6 %; EOSINOPHILS # (AUTO) 0.1 10^3/uL (0.0-0.7); EOSINOPHILS % (AUTO) 1.5 %; HCT - HEMATOCRIT 42.9 % (42.0-52.0); HGB - HEMOGLOBIN 14.5 g/dL (14.0-18.0); LYMPHOCYTES # (AUTO) 1.5 10^3/uL (1.5-3.5); LYMPHOCYTES % (AUTO) 22.2 %; MEAN CORPUSCULAR HEMOGLOBIN 31.7 pg (27.0-31.0); MEAN CORPUSCULAR HGB CONC 33.8 g/dL (32.0-36.0); MEAN CORPUSCULAR VOLUME 93.9 fL (80.0-94.0); MEAN PLATELET VOLUME 9.3 fL (7.4-11.4); MONOCYTES # (AUTO) 0.5 10^3/uL (0.0-1.0); MONOCYTES % (AUTO) 7.7 %; NEUTROPHILS # (AUTO) 4.6 10^3/uL (1.5-6.6); NEUTROPHILS % (AUTO) 67.9 %; PLT - PLATELET COUNT 211 10^3/uL (130-450); RED BLOOD COUNT 4.57 10^6/uL (4.70-6.10); RED CELL DISTRIBUTION WIDTH 12.6 % (12.0-15.0); WHITE BLOOD COUNT 6.8 x10^3/uL (4.8-10.8)
[2023-09-01 13:57] LABS: ALBUMIN 4.3 g/dL (3.2-5.5); ALBUMIN/GLOBULIN RATIO 1.5 (1.0-2.2); BILIRUBIN,TOTAL 0.3 mg/dL (0.2-1.0); CALCIUM 9.6 mg/dL (8.5-10.3); CREATININE 0.9 mg/dL (0.6-1.3); POTASSIUM 4.6 mmol/L (3.5-4.5); TOTAL PROTEIN 7.2 g/dL (6.4-8.9)
--- NOTE | 2023-09-01 14:42 | ED Physician Documentation ---
History of Present Illness - Stated complaint Stated Complaint: GEN WEAKNESS,HR RATE - Chief complaint Chief Complaint: General - Additonal information Additional information: 83-year-old male with history of A-fib, colon polyps, GI bleed presents emergency department for increased generalized weakness.Patient says that he has been to the emergency department for similar complaints and has also informed his primary care provider of this but has not really gotten any resolution. Patient says over the last couple days has gotten significantly worse to the point where he gets up eats breakfast and goes back to bed immediately. He has had no unintentional weight loss no shortness of breath no chest pain no abdominal pain. Patient says that he maybe has noticed some bounding pulses at home but he has also had a 2-week Holter monitor and Holter monitor results came back unremarkable.Denies any recent fevers or chills no upper respiratory infection symptoms no dizziness with ambulation no exertional shortness of breath. PD PAST MEDICAL HISTORY - Past Medical History Cardiovascular: Atrial fibrillation Respiratory: None Neuro: None Endocrine/Autoimmune: None GI: GI bleed, Colon polyps : None HEENT: None Psych: None Musculoskeletal: None Derm: None - Past Surgical History Past Surgical History: Yes General: Hiatal hernia repair, Colonoscopy Ortho: Other - Present Medications Home Medications: Ambulatory Orders Medication Instructions Recorded Confirmed Propafenone HCl [Propafenone HCl 225 mg PO BID 09/01/23 ER] - Allergies Allergies/Adverse Reactions: Allergies Allergy/AdvReac Type Severity Reaction Status Date / Time No Known Drug Allergies Allergy Verified 09/01/23 12:35 - Social History Does the pt smoke?: No Smoking Status: Never smoker Does the pt drink ETOH?: Yes Does the pt have substance abuse?: No - Immunizations Immunizations are current?: Yes PD ED PE NORMAL - Vitals Vital signs reviewed: Yes - General General: Alert and oriented X 3, No acute distress, Well developed/nourished - HEENT HEENT: Atraumatic, PERRL - Neck Neck: Supple, no meningeal sign - Cardiac Cardiac: RRR - Respiratory Respiratory: No respiratory distress, Clear bilaterally - Abdomen Abdomen: Normal bowel sounds, Soft, Non tender, Non distended, No organomegaly - Derm Derm: Other (pale) - Extremities Extremities: No edema, No calf tenderness / cord - Neuro Neuro: Alert and oriented X 3, environmental epidemiologist 2-12 intact, No motor deficit, No sensory deficit, Normal speech Eye Opening: Spontaneous Motor: Obeys Commands Verbal: Oriented GCS Score: 15 - Psych Psych: Normal mood, Normal affect Results - Vitals Vitals: Vital Signs - 24 hr 09/01/23 09/01/23 09/01/23 12:24 15:09 15:52 Temperature 36.3 C L Heart Rate 75 76 70 Respiratory 16 18 15 Rate Blood Pressure 125/85 H 151/92 H 148/76 H O2 Saturation 97 95 98 Oxygen O2 Source Room air - EKG (time done) 1237 EKG releavant findings:: EKG personally interpreted by author of this note. Relevant findings are: Rate: Rate (enter#) (68) Rhythm: NSR Gerber: Normal Intervals: Normal NV QRS: Normal Ischemia: Normal ST segments Computer interpretation: Agree with computer - Labs Labs: Laboratory Tests 09/01/23 09/01/23 09/01/23 13:34 13:34 13:34 WBC 6.8 RBC 4.57 L Hgb 14.5 Hct 42.9 MCV 93.9 MCH 31.7 H MCHC 33.8 RDW 12.6 Plt Count 211 MPV 9.3 Neut # (Auto) 4.6 Lymph # (Auto) 1.5 Bledsoe # (Auto) 0.5 Eos # (Auto) 0.1 Baso # (Auto) 0.0 Absolute Nucleated RBC 0.00 Nucleated RBC % 0.0 Sodium 137 Potassium 4.6 H Chloride 103 Carbon Dioxide 29 Anion Gap 5.0 L BUN 13 Creatinine 0.9 Estimated GFR (MDRD) 80 L Glucose 117 H Calcium 9.6 Magnesium 2.0 Total Bilirubin 0.3 AST 11 ALT 9 L Alkaline Phosphatase 53 Troponin I High Sens 3.0 Total Protein 7.2 Albumin 4.3 Globulin 2.9 Albumin/Globulin Ratio 1.5 TSH 2.43 Nasal Adenovirus (PCR) Nasal B. parapertussis DNA (PCR) Nasal Coronavir 229E PCR Nasal Coronavir HKU1 PCR Nasal Coronavir NL63 PCR Nasal Coronavir OC43 PCR Nasal Enterovir/Rhinovir PCR Nasal Influenza B PCR Nasal Influenza A PCR Nasal Parainfluen 1 PCR Nasal Parainfluen 2 PCR Nasal Parainfluen 3 PCR Nasal Parainfluen 4 PCR Nasal RSV (PCR) Nasal B.pertussis DNA PCR Nasal C.pneumoniae (PCR) Jose Human Metapneumo PCR Nasal M.pneumoniae (PCR) Nasal SARS-CoV-2 (PCR) 09/01/23 14:56 WBC RBC Hgb Hct MCV MCH MCHC RDW Plt Count MPV Neut # (Auto) Lymph # (Auto) Bledsoe # (Auto) Eos # (Auto) Baso # (Auto) Absolute Nucleated RBC Nucleated RBC % Sodium Potassium Chloride Carbon Dioxide Anion Gap BUN Creatinine Estimated GFR (MDRD) Glucose Calcium Magnesium Total Bilirubin AST ALT Alkaline Phosphatase Troponin I High Sens Total Protein Albumin Globulin Albumin/Globulin Ratio TSH Nasal Adenovirus (PCR) NOT DETECTED Nasal B. parapertussis DNA (PCR) NOT DETECTED Nasal Coronavir 229E PCR NOT DETECTED Nasal Coronavir HKU1 PCR NOT DETECTED Nasal Coronavir NL63 PCR NOT DETECTED Nasal Coronavir OC43 PCR NOT DETECTED Nasal Enterovir/Rhinovir PCR NOT DETECTED Nasal Influenza B PCR NOT DETECTED Nasal Influenza A PCR NOT DETECTED Nasal Parainfluen 1 PCR NOT DETECTED Nasal Parainfluen 2 PCR NOT DETECTED Nasal Parainfluen 3 PCR NOT DETECTED Nasal Parainfluen 4 PCR NOT DETECTED Nasal RSV (PCR) NOT DETECTED Nasal B.pertussis DNA PCR NOT DETECTED Nasal C.pneumoniae (PCR) NOT DETECTED Jose Human Metapneumo PCR NOT DETECTED Nasal M.pneumoniae (PCR) NOT DETECTED Nasal SARS-CoV-2 (PCR) NOT DETECTED PD Medical Decision Making - ED course ED course: 83-year-old male presents emergency department for concerns of weakness. Patient has had multiple investigations done outpatient including 2-week Holter monitor and all results have come back unremarkable per his daughter who is with him at bedside. He recently followed up with his primary care provider who also gave him a clean bill of health but he says that he has been having ongoing weakness. Labs are complete here in the ER for further evaluation mild hyperkalemia 4.6, normal troponin I checked this given that patient is on that he was having a couple episodes of possible chest pain and he was feeling his heart pounding. No other electrolyte abnormalities that could be contributing to patient's severe weakness. He denies any dizziness he denies any neurological changes NIH score is 0 and he also denies any abdominal pain I do not have any reason at this point in time the emergency department to do an emergency CT scan but patient was told to follow-up with his primary care provider for further more specialty testing to be completed outpatient for further evaluation of his weakness. He was given a liter of IV fluid here in the emergency department to help with his weakness he said that this did not significantly help him he is given ER return precautions all questions answered patient is safe for discharge at this point in time. Departure - Departure Disposition: 01 Home, Self Care Clinical Impression: Weakness Instructions: ED Weakness [facility] Comments: Thank you for trusting us with your care. We have completed EKG as well as labs and we are not seeing any acute abnormalities or findings at this point in time that would be concerning for causing your weakness. Is very important that you follow-up with your primary care provider for more outpatient specialty labs and possible outpatient imaging for further workup. Please come back to the ER if you are noticing any shortness of breath, chest pain, dizziness, or any other concerning emergent symptoms. Forms: PCP List Discharge Date/Time: 09/01/23 15:55
[2023-09-01] MEDS: SODIUM CHLORIDE 0.9% 1,000 ML IV ONE (14:56)
[2023-09-01 15:44] LABS: THYROID STIMULATING HORMONE 2.43 uIU/mL (0.34-5.60)
[2023-09-01 15:54] LABS: B. PARAPERTUSSIS- RESP PCR PAN NOT DETECTED; B. PERTUSSIS- RESP PCR PANEL NOT DETECTED; C. PNEUMONIAE- RESP PCR PANEL NOT DETECTED; CORONAVIRUS 229E-RESP PCR NOT DETECTED; CORONAVIRUS HKU1-RESP PCR NOT DETECTED; CORONAVIRUS NL63-RESP PCR NOT DETECTED; CORONAVIRUS OC43-RESP PCR NOT DETECTED; HUMAN METAPNEUMOVIRUS NOT DETECTED; INFLUENZA A- RESP PCR PANEL NOT DETECTED; INFLUENZA B - RESP PCR PANEL NOT DETECTED; M. PNEUMONIAE- RESP PCR PANEL NOT DETECTED; PARAINFLUENZA VIRUS 1 NOT DETECTED; PARAINFLUENZA VIRUS 2 NOT DETECTED; PARAINFLUENZA VIRUS 3 NOT DETECTED; PARAINFLUENZA VIRUS 4 NOT DETECTED; RHINOVIRUS/ENTEROVIRUS NOT DETECTED; RSV- RESP PCR PANEL NOT DETECTED; SARS-CoV-2 -RESP PCR PANEL NOT DETECTED
[2023-09-01 16:01] VITALS: BP 148/76; O2SAT 98
== END 2023-09-01 15:55 | disposition home or self-care (01) ==
LOC: ED 11:47
DX: R53.1 Weakness (principal)
CPT/HCPCS: 36415; 80053; 83735; 84443; 84484; 85025; 87633; 93005; 99283